=== PATIENT | female | born 1975 | race Caucasian/White ===

== ENCOUNTER 2018-07-11 12:26 | Emergency (ER) | payer OTHER ==
[~2018-07-11] VITALS: Ht 162.6 cm; Wt 94.8 kg
[~2018-07-11 12:26] MED LIST: ABAC300; ACEBUTCAFT; BUTASPCAFT PO; IBUP800 PO; KETO10 PO; Naprosyn500 MG PO; Robaxin500 MG PO; Zofran Odt4 MG SL
[2018-07-11 13:20] LABS: BASOPHILS ABSOLUTE AUTO 0.08 K/mm3 (0.00-0.23); BASOPHILS PERCENT AUTO 1 % (0-2); EOSINOPHILS ABSOLUTE AUTO 0.34 K/mm3 (0.00-0.68); EOSINOPHILS PERCENT AUTO 5 % (0-6); Hematocrit 42.9 % (33.0-51.0); Hemoglobin 14.2 g/dL (11.5-16.0); IMMATURE GRAN ABSOLUTE AUTO 0.01 K/mm3 (0.00-0.10); IMMATURE GRAN PERCENT AUTO 0 % (0-1); LYMPHOCYTES PERCENT AUTO 35 % (21-46); MONOCYTES ABSOLUTE AUTO 0.73 K/mm3 (0.16-1.47); MONOCYTES PERCENT AUTO 10 % (4-13); Mean Corpuscular HGB 31.3 pg (26.0-34.0); Mean Corpuscular HGB Conc 33.1 g/dL (31.5-36.5); Mean Corpuscular Volume 95 fL (80-100); Mean Platelet Volume 11.1 fL (9.1-12.4); NEUTROPHILS ABSOLUTE AUTO 3.48 K/mm3 (1.96-9.15); NEUTROPHILS PERCENT AUTO 49 % (41-73); Platelet Count 210 K/mm3 (150-400); RDW Coefficient Variation 11.6 % (11.7-14.2); RDW Standard Deviation 40.2 fL (35.1-46.3); Red Blood Cell Count 4.54 M/mm3 (3.80-5.20); White Blood Cell Count 7.14 K/mm3 (4.00-11.30)
[2018-07-11 13:43] LABS: Alanine Aminotransfer (ALT/SGP 22 U/L (12-78); Albumin, Blood 3.6 g/dL (3.4-5.0); Albumin/Globulin Ratio 0.9 (0.8-1.8); Alk Phos 62 U/L (50-136); Anion Gap 8 mmol/L (6-16); Aspartate Aminotrans (AST/SGOT 13 U/L (12-37); Bilirubin, Total 0.4 mg/dL (0.1-1.0); Blood Urea Nitrogen 10 mg/dL (8-24); Bun/Creatinine Ratio 14.1 (12.0-20.0); CO2, Blood 25 mmol/L (21-32); Calcium, Blood 8.6 mg/dL (8.5-10.1); Chloride, Blood 108 mmol/L (98-108); Creatinine, Blood 0.71 mg/dL (0.40-1.00); Glomerular Filtration Rate >60 (60-); Glucose, Blood 87 mg/dL (70-99); Potassium, Blood 3.7 mmol/L (3.5-5.5); Sodium, Blood 141 mmol/L (136-145); Total Protein, Blood 7.6 g/dL (6.4-8.2)
[2018-07-11] MEDS ORDERED: KETO10 PO (15:54)
[2018-07-11] MEDS ORDERED: CIPR500 PO (15:54)
== END 2018-07-11 16:10 | disposition home or self-care (01) ==
LOC: ER 12:26
PROVIDERS: Emergency Medicine
DX: A09 Infectious gastroenteritis and colitis, unspecified (principal); G43.909 Migraine, unspecified, not intractable, without status migrainosus; F17.210 Nicotine dependence, cigarettes, uncomplicated
CPT/HCPCS: 36415; 74177; 80053; 83690; 85025; 99284-25; Q9967

== ENCOUNTER → 2019-01-14 | Outpatient (CLI) | payer OTHER ==
[~2019-01-14] MED LIST changes: +CIPR500 PO
== END | disposition home or self-care (01) ==
LOC: PLD 10:38 → LAB SHORT 10:38
DX: B35.1 Tinea unguium (principal)
CPT/HCPCS: 88305; 88312

== ENCOUNTER → 2020-11-05 | Outpatient (CLI) | payer OTHER ==
[2020-11-05 08:55] LABS: BASOPHILS ABSOLUTE AUTO 0.12 K/mm3 (0.00-0.23); BASOPHILS PERCENT AUTO 2 % (0-2); EOSINOPHILS ABSOLUTE AUTO 0.26 K/mm3 (0.00-0.68); EOSINOPHILS PERCENT AUTO 3 % (0-6); Hematocrit 42.6 % (33.0-51.0); IMMATURE GRAN ABSOLUTE AUTO 0.02 K/mm3 (0.00-0.10); IMMATURE GRAN PERCENT AUTO 0 % (0-1); LYMPHOCYTES ABSOLUTE AUTO 2.52 K/mm3 (0.84-5.20); LYMPHOCYTES PERCENT AUTO 32 % (21-46); MONOCYTES ABSOLUTE AUTO 0.77 K/mm3 (0.16-1.47); MONOCYTES PERCENT AUTO 10 % (4-13); Mean Corpuscular HGB Conc 35.2 g/dL (31.5-36.5); Mean Corpuscular Volume 91 fL (80-100); Mean Platelet Volume 11.7 fL (9.1-12.4); NEUTROPHILS ABSOLUTE AUTO 4.12 K/mm3 (1.96-9.15); NEUTROPHILS PERCENT AUTO 53 % (41-73); Platelet Count 183 K/mm3 (150-400); RDW Coefficient Variation 11.8 % (11.7-14.2); RDW Standard Deviation 39.1 fL (35.1-46.3); Red Blood Cell Count 4.69 M/mm3 (3.80-5.20); White Blood Cell Count 7.81 K/mm3 (4.00-11.30)
[2020-11-05 09:09] LABS: Alanine Aminotransfer (ALT/SGP 19 U/L (12-78); Albumin, Blood 3.6 g/dL (3.4-5.0); Albumin/Globulin Ratio 0.9 (0.8-1.8); Alk Phos 58 U/L (40-126); Anion Gap 9 mmol/L (6-16); Aspartate Aminotrans (AST/SGOT 29 U/L (12-37); Bilirubin, Total 0.3 mg/dL (0.1-1.0); Blood Urea Nitrogen 11 mg/dL (8-24); Bun/Creatinine Ratio 13.6 (12.0-20.0); CO2, Blood 23 mmol/L (21-32); Calcium, Blood 8.6 mg/dL (8.5-10.1); Chloride, Blood 105 mmol/L (98-108); Creatinine, Blood 0.81 mg/dL (0.40-1.00); Glomerular Filtration Rate >60 (60-); Glucose, Blood 98 mg/dL (70-99); Potassium, Blood 4.3 mmol/L (3.5-5.5); Sodium, Blood 137 mmol/L (136-145); Total Protein, Blood 7.6 g/dL (6.4-8.2)
[2020-11-05 09:10] LABS: Troponin I <0.017 ng/mL (0.000-0.040)
== END | disposition home or self-care (01) ==
LOC: LAB 08:50 → LAB SHORT 08:50
PROVIDERS: Physician Assistant Medical
DX: R06.00 Dyspnea, unspecified (principal)
CPT/HCPCS: 80053; 84484; 85025; 85379

== ENCOUNTER 2023-03-23 00:28 | Observation (INO) | payer OTHER ==
[~2023-03-23] VITALS: Ht 157.5 cm; Wt 90.7 kg
[2023-03-23] MEDS ORDERED: Ventolin/Prove6.7 GM INH (00:58)
[2023-03-23 01:00] LABS: BASOPHILS PERCENT AUTO 2 % (0-2); EOSINOPHILS ABSOLUTE AUTO 1.67 K/mm3 (0.00-0.68); EOSINOPHILS PERCENT AUTO 13 % (0-6); Hematocrit 38.4 % (33.0-51.0); Hemoglobin 13.1 g/dL (11.5-16.0); IMMATURE GRAN ABSOLUTE AUTO 0.03 K/mm3 (0.00-0.10); IMMATURE GRAN PERCENT AUTO 0 % (0-1); LYMPHOCYTES ABSOLUTE AUTO 3.53 K/mm3 (0.84-5.20); LYMPHOCYTES PERCENT AUTO 28 % (21-46); MONOCYTES ABSOLUTE AUTO 1.32 K/mm3 (0.16-1.47); MONOCYTES PERCENT AUTO 10 % (4-13); Mean Corpuscular HGB 31.1 pg (26.0-34.0); Mean Corpuscular HGB Conc 34.1 g/dL (31.5-36.5); Mean Corpuscular Volume 91 fL (80-100); Mean Platelet Volume 11.1 fL (9.1-12.4); NEUTROPHILS ABSOLUTE AUTO 6.07 K/mm3 (1.96-9.15); NEUTROPHILS PERCENT AUTO 47 % (41-73); Platelet Count 237 K/mm3 (150-400); RDW Coefficient Variation 12.4 % (11.7-14.2); RDW Standard Deviation 41.1 fL (35.1-46.3); Red Blood Cell Count 4.21 M/mm3 (3.80-5.20); White Blood Cell Count 12.82 K/mm3 (4.00-11.30)
[2023-03-23] MEDS ORDERED: RYBELSUS3 MG PO (01:00)
[2023-03-23 01:13] LABS: Albumin, Blood 3.2 g/dL (3.4-5.0); Albumin/Globulin Ratio 0.8 (0.8-1.8); Bilirubin, Total 0.3 mg/dL (0.1-1.0); Bun/Creatinine Ratio 22.3 (12.0-20.0); Calcium, Blood 8.2 mg/dL (8.5-10.1); Creatinine, Blood 0.58 mg/dL (0.40-1.00); Globulin, Blood 3.9 g/dL (2.2-4.0); Potassium, Blood 3.8 mmol/L (3.5-5.5); Total Protein, Blood 7.1 g/dL (6.4-8.2)
[2023-03-23 05:02] LABS: Base Excess Venous -1.5 mmol/L; Bicarbonate Venous 23.5 mmol/L (24.0-30.0); PCO2 Venous 37.2 mmHg (38-42); pH Blood Venous 7.41 (7.34-7.37)
[2023-03-23 05:28] LABS: BASOPHILS PERCENT AUTO 1 % (0-2); EOSINOPHILS ABSOLUTE AUTO 0.05 K/mm3 (0.00-0.68); EOSINOPHILS PERCENT AUTO 1 % (0-6); Hematocrit 38.6 % (33.0-51.0); Hemoglobin 13.2 g/dL (11.5-16.0); IMMATURE GRAN ABSOLUTE AUTO 0.04 K/mm3 (0.00-0.10); IMMATURE GRAN PERCENT AUTO 0 % (0-1); LYMPHOCYTES ABSOLUTE AUTO 0.78 K/mm3 (0.84-5.20); LYMPHOCYTES PERCENT AUTO 7 % (21-46); MONOCYTES ABSOLUTE AUTO 0.24 K/mm3 (0.16-1.47); MONOCYTES PERCENT AUTO 2 % (4-13); Mean Corpuscular HGB 31.2 pg (26.0-34.0); Mean Corpuscular HGB Conc 34.2 g/dL (31.5-36.5); Mean Corpuscular Volume 91 fL (80-100); Mean Platelet Volume 11.3 fL (9.1-12.4); NEUTROPHILS ABSOLUTE AUTO 9.29 K/mm3 (1.96-9.15); NEUTROPHILS PERCENT AUTO 88 % (41-73); Platelet Count 230 K/mm3 (150-400); RDW Coefficient Variation 12.4 % (11.7-14.2); RDW Standard Deviation 41.1 fL (35.1-46.3); Red Blood Cell Count 4.23 M/mm3 (3.80-5.20)
[2023-03-23 05:49] VITALS: BP 154/71
[2023-03-23 05:52] LABS: Albumin, Blood 3.3 g/dL (3.4-5.0); Albumin/Globulin Ratio 0.8 (0.8-1.8); Bilirubin, Total 0.3 mg/dL (0.1-1.0); Bun/Creatinine Ratio 17.8 (12.0-20.0); Calcium, Blood 8.6 mg/dL (8.5-10.1); Creatinine, Blood 0.62 mg/dL (0.40-1.00); Globulin, Blood 3.9 g/dL (2.2-4.0); Magnesium, Blood 2.8 mg/dL (1.6-2.4); Potassium, Blood 3.5 mmol/L (3.5-5.5); Total Protein, Blood 7.2 g/dL (6.4-8.2)
--- NOTE | 2023-03-23 06:00 | NUR ---
ADMIT- SHIFT SUMMARY NOTE PATIENT IS ADMITTED FROM ED. PATIENT IS AOX4. PATIENT IS IND. ADMISSION COMPLETE. PATIENT HAS NO VAPING MATERIALS. WILL REPORT TO DAY SHIFT.
[2023-03-23 07:31] VITALS: BP 140/72
[2023-03-23] MEDS ORDERED: Amoxicillin500 MG PO (15:11)
[2023-03-23 15:57] VITALS: BP 126/73
--- NOTE | 2023-03-23 16:43 | NUR ---
PT AOX4 AND COOPERATIVE OF CARE. PT STATING SHE FEELS BETTER FAR HER BREATHING. PT STILL SOB, BUT APPEARS TO NOT BE LABORED WHEN TAKING BREATHS. PT REPORTED HEADACE TODAY AND WAS TREATED WITH TYLENOL WHICH WAS NOT EFFECTIVE. PT REPORTED HER CHERY CONTINUING AND DR RAY WAS NOTFIED AND ADDED MEDICATION TO EMAR. PT WAS TREATED AGAIN AND NOW SHE STATES IT IS TOLERABLE. INDEPENDENT IN ROOM AND ABLE TO MAKE NEEDS KNOWN. WILL CONTINUE TO MONITOR.
[2023-03-23 19:08] VITALS: BP 141/80
[2023-03-24 02:44] VITALS: BP 125/82
--- NOTE | 2023-03-24 04:25 | NUR ---
SHIFT SUMMARY THUY IS ALERT AND FULLY ORIENTED AT THE START OF SHIFT AND COOPERATIVE WITH CARE. AT TIME OF ASSESSMENT PT IS DENYING PAIN, C/P/PRESSURE, AND SOB. PT IS INDEPENDENT IN ROOM. NO ACUTE EVENTS TONIGHT, PT RESTING IN BED AT A LOW POSITION WITH THE CALL LIGHT IN REACH WHICH SHE USES APPROPRIATELY.
[2023-03-24 06:07] LABS: BASOPHILS ABSOLUTE AUTO 0.05 K/mm3 (0.00-0.23); BASOPHILS PERCENT AUTO 0 % (0-2); EOSINOPHILS ABSOLUTE AUTO 0.02 K/mm3 (0.00-0.68); EOSINOPHILS PERCENT AUTO 0 % (0-6); Hematocrit 38.4 % (33.0-51.0); IMMATURE GRAN PERCENT AUTO 1 % (0-1); LYMPHOCYTES ABSOLUTE AUTO 2.75 K/mm3 (0.84-5.20); LYMPHOCYTES PERCENT AUTO 14 % (21-46); MONOCYTES ABSOLUTE AUTO 1.45 K/mm3 (0.16-1.47); MONOCYTES PERCENT AUTO 8 % (4-13); Mean Corpuscular HGB 31.2 pg (26.0-34.0); Mean Corpuscular HGB Conc 33.9 g/dL (31.5-36.5); Mean Corpuscular Volume 92 fL (80-100); NEUTROPHILS ABSOLUTE AUTO 15.01 K/mm3 (1.96-9.15); NEUTROPHILS PERCENT AUTO 77 % (41-73); Platelet Count 256 K/mm3 (150-400); RDW Standard Deviation 44.4 fL (35.1-46.3); Red Blood Cell Count 4.17 M/mm3 (3.80-5.20); White Blood Cell Count 19.38 K/mm3 (4.00-11.30)
[2023-03-24 06:38] LABS: Bun/Creatinine Ratio 22.9 (12.0-20.0); Calcium, Blood 8.3 mg/dL (8.5-10.1); Creatinine, Blood 0.65 mg/dL (0.40-1.00); Potassium, Blood 4.4 mmol/L (3.5-5.5)
[2023-03-24 07:34] VITALS: BP 138/88
[2023-03-24 10:12] LABS: Adenovirus Not Detected (NOT DETECT); Bordetella pertussis Not Detected (NOT DETECT); Chlamydophila pneumoniae Not Detected (NOT DETECT); Coronavirus 229E Not Detected (NOT DETECT); Coronavirus HKU1 Not Detected (NOT DETECT); Coronavirus NL63 Not Detected (NOT DETECT); Coronavirus OC43 Not Detected (NOT DETECT); Human Metapneumovirus Not Detected (NOT DETECT); Human Rhinovirus/Enterovirus Not Detected (NOT DETECT); Influenza A/2009-H1 Not Detected (NOT DETECT); Influenza A/H1 Not Detected (NOT DETECT); Influenza A/H3 Not Detected (NOT DETECT); Influenza B Not Detected (NOT DETECT); Mycoplasma pneumoniae Not Detected (NOT DETECT); Parainfluenza Virus 1 Not Detected (NOT DETECT); Parainfluenza Virus 2 Not Detected (NOT DETECT); Parainfluenza Virus 3 Not Detected (NOT DETECT); Parainfluenza Virus 4 Not Detected (NOT DETECT); Respiratory Syncytial Virus Not Detected (NOT DETECT); SARS-Cov-2 (COVID-19), BioFire Not Detected (NOT DETECT)
[2023-03-24] MEDS ORDERED: ALBU2.5V5 INH (12:18)
[2023-03-24] MEDS ORDERED: VISBIOME 112.51 EACH PO (12:19)
[2023-03-24] MEDS ORDERED: IPRAT-ALBUT 0.5-3 ML INH (12:19)
[2023-03-24] MEDS ORDERED: PRED20 PO (12:19)
[2023-03-24] MEDS ORDERED: AZIT250 PO (12:20)
[2023-03-24] MEDS ORDERED: FLUT1DIS5 INH (12:20)
[2023-03-24] MEDS ORDERED: GUAI600T33 PO (12:21)
--- NOTE | 2023-03-24 13:20 | NUR ---
PATIENT D/C'D TO HOME WITH FAMILY. D/C INSTRUCTIONS AND EDUCATION DISCUSSED WITH PATIENT AND COPY PROVIDED. RX MEDICATIONS FAXED TO [facility] [employer]. PATIENT DENIES ANY FURTHER QUESTIONS OR CONCERNS. METAL CUT OFF SAW TENDER TO CONTACT WITH INFORMATION ABOUT NEBULIZER.
== END 2023-03-24 13:11 | disposition home or self-care (01) ==
LOC: ER 00:28 → MEDS 05:05 → ENPENDDIS 03-24 11:56 → MEDS 03-24 13:11
PROVIDERS: Family Medicine; Internal Medicine; Student in an Organized Health Care Education/Training Program; ADMIT Student in an Organized Health Care Education/Training Program
DX: J44.1 Chronic obstructive pulmonary disease with (acute) exacerbation (principal); Z72.0 Tobacco use; Z20.822 Contact with and (suspected) exposure to COVID-19
CPT/HCPCS: 0202U; 36415; 71046; 80048; 80053; 82803; 83735; 83880; 85025; 93005; 93010; 94640; 94645; 94664; 94760; 94761; 94762; 96365; 96372; 96375; 99285-25; A9270; G0378; J1650; J2930; J3475; J7512; J7626

== ENCOUNTER 2024-08-27 20:58 | Inpatient (IN) | payer OTHER ==
[~2024-08-27] VITALS: Ht 162.6 cm; Wt 91.8 kg
[~2024-08-27 20:58] MED LIST changes: +ALBU2.5V5 INH; +AZIT250 PO; +Amoxicillin500 MG PO; +FLUT1DIS5 INH; +GUAI600T33 PO; +IPRAT-ALBUT 0.5-3 ML INH; +PRED20 PO; +RYBELSUS3 MG PO; +VISBIOME 112.51 EACH PO; +Ventolin/Prove6.7 GM INH
[2024-08-27] MEDS ORDERED: Mag Sulfate 1 GM/D5% 100ML 100 ML IV STA (21:03)
[2024-08-27 21:10] LABS: Base Excess Venous -2.2 mmol/L; Bicarbonate Venous 23.1 mmol/L (24.0-30.0); PCO2 Venous 34.9 mmHg (38-42); pH Blood Venous 7.42 (7.34-7.37)
[2024-08-27] MEDS ORDERED: Albuterol 2.5 MG/3 ML VIAL INH SCH ×2 (21:10→23:35)
[2024-08-27 21:22] LABS: BASOPHILS ABSOLUTE AUTO 0.23 K/mm3 (0.00-0.23); BASOPHILS PERCENT AUTO 1 % (0-2); EOSINOPHILS ABSOLUTE AUTO 0.91 K/mm3 (0.00-0.68); EOSINOPHILS PERCENT AUTO 5 % (0-6); Hematocrit 41.7 % (33.0-51.0); Hemoglobin 14.6 g/dL (11.5-16.0); IMMATURE GRAN ABSOLUTE AUTO 0.05 K/mm3 (0.00-0.10); IMMATURE GRAN PERCENT AUTO 0 % (0-1); LYMPHOCYTES ABSOLUTE AUTO 2.69 K/mm3 (0.84-5.20); LYMPHOCYTES PERCENT AUTO 15 % (21-46); MONOCYTES ABSOLUTE AUTO 1.08 K/mm3 (0.16-1.47); MONOCYTES PERCENT AUTO 6 % (4-13); Mean Corpuscular HGB 30.9 pg (26.0-34.0); Mean Corpuscular Volume 88 fL (80-100); Mean Platelet Volume 10.5 fL (9.1-12.4); NEUTROPHILS ABSOLUTE AUTO 12.53 K/mm3 (1.96-9.15); NEUTROPHILS PERCENT AUTO 72 % (41-73); Platelet Count 292 K/mm3 (150-400); RDW Coefficient Variation 12.2 % (11.7-14.2); RDW Standard Deviation 39.2 fL (35.1-46.3); Red Blood Cell Count 4.73 M/mm3 (3.80-5.20); White Blood Cell Count 17.49 K/mm3 (4.00-11.30)
[2024-08-27 21:56] LABS: Albumin, Blood 3.6 g/dL (3.4-5.0); Albumin/Globulin Ratio 0.9 (0.8-1.8); Bilirubin, Total 0.2 mg/dL (0.1-1.0); Bun/Creatinine Ratio 18.7 (12.0-20.0); Creatinine, Blood 0.69 mg/dL (0.40-1.00); Globulin, Blood 3.9 g/dL (2.2-4.0); Potassium, Blood 3.7 mmol/L (3.5-5.5); Total Protein, Blood 7.5 g/dL (6.4-8.2)
[2024-08-27] MEDS ORDERED: Azithromycin 500 MG in NS 250 ML IV ONE (23:30)
[2024-08-27] MEDS ORDERED: Ipratropium Bromide INH 0.02% 0.5 mg/2.5ML Vial INH SCH (23:35)
[2024-08-28 02:24] VITALS: BP 120/63
[2024-08-28] MEDS ORDERED: RYBELSUS3 MG PO (02:25)
[2024-08-28] MEDS ORDERED: Ipratropium/Albuterol SulF 2.5-0.5MG/3 ML Amp INH PRN (02:55)
[2024-08-28] MEDS ORDERED: Guaifenesin/Dextromethorphan Syrup 5 ML UDC PO PRN (02:55)
[2024-08-28] MEDS ORDERED: Ondansetron HCl 2 MG / ML 2ML Vial IV PRN (02:55)
[2024-08-28 03:18] LABS: BASOPHILS ABSOLUTE AUTO 0.04 K/mm3 (0.00-0.23); BASOPHILS PERCENT AUTO 0 % (0-2); EOSINOPHILS ABSOLUTE AUTO 0.01 K/mm3 (0.00-0.68); EOSINOPHILS PERCENT AUTO 0 % (0-6); Hemoglobin 13.8 g/dL (11.5-16.0); IMMATURE GRAN ABSOLUTE AUTO 0.02 K/mm3 (0.00-0.10); IMMATURE GRAN PERCENT AUTO 0 % (0-1); LYMPHOCYTES ABSOLUTE AUTO 0.53 K/mm3 (0.84-5.20); LYMPHOCYTES PERCENT AUTO 5 % (21-46); MONOCYTES ABSOLUTE AUTO 0.13 K/mm3 (0.16-1.47); MONOCYTES PERCENT AUTO 1 % (4-13); Mean Corpuscular HGB 30.7 pg (26.0-34.0); Mean Corpuscular HGB Conc 34.5 g/dL (31.5-36.5); Mean Corpuscular Volume 89 fL (80-100); Mean Platelet Volume 10.5 fL (9.1-12.4); NEUTROPHILS ABSOLUTE AUTO 10.43 K/mm3 (1.96-9.15); NEUTROPHILS PERCENT AUTO 93 % (41-73); Platelet Count 270 K/mm3 (150-400); RDW Coefficient Variation 12.4 % (11.7-14.2); RDW Standard Deviation 40.1 fL (35.1-46.3); Red Blood Cell Count 4.49 M/mm3 (3.80-5.20); White Blood Cell Count 11.16 K/mm3 (4.00-11.30)
[2024-08-28] MEDS ORDERED: Ipratropium/Albuterol SulF 2.5-0.5MG/3 ML Amp INH SCH (03:30)
[2024-08-28] MEDS ORDERED: Albuterol 2.5 MG/3 ML VIAL INH PRN (03:30)
[2024-08-28 03:36] LABS: Albumin, Blood 3.4 g/dL (3.4-5.0); Albumin/Globulin Ratio 0.8 (0.8-1.8); Bilirubin, Total 0.1 mg/dL (0.1-1.0); Bun/Creatinine Ratio 19.3 (12.0-20.0); Calcium, Blood 8.6 mg/dL (8.5-10.1); Creatinine, Blood 0.73 mg/dL (0.40-1.00); Potassium, Blood 3.3 mmol/L (3.5-5.5); Total Protein, Blood 7.4 g/dL (6.4-8.2)
[2024-08-28] MEDS ORDERED: NS 250 ML IV PRN (04:00)
[2024-08-28] MEDS ORDERED: Potassium Chloride 20 MEQ TabCR PO ONE ×2 (05:00→08:00)
[2024-08-28] MEDS ORDERED: MethylPREDNISolone Sod Succ 125 MG Vial IV SCH (05:00)
[2024-08-28 05:13] LABS: Influenza A, PCR NEGATIVE (NEGATIVE); Influenza B, PCR NEGATIVE (NEGATIVE); Resp Syncytial Virus, PCR NEGATIVE (NEGATIVE); SARS-Cov-2 (COVID-19) PCR, MMC NEGATIVE (NEGATIVE)
[2024-08-28 07:36] VITALS: BP 178/87
[2024-08-28] MEDS ORDERED: Mometasone/Formoterol MDI 200/5 mcg 13 GM INH SCH (07:50)
[2024-08-28] MEDS ORDERED: Enoxaparin 40 MG/0.4 ML SYR SC SCH (09:00)
[2024-08-28] MEDS ORDERED: Lactobacil 2-S.Thermo-Bifido 1 1 Cap PO SCH (09:00)
[2024-08-28 09:09] VITALS: BP 137/65
[2024-08-28 12:00] VITALS: BP 137/71
[2024-08-28 15:40] VITALS: BP 105/54
--- NOTE | 2024-08-28 15:58 | NUR ---
NO ACUTE CHANGES THIS SHIFT. PT REPORTED FEELING BETTER LAST NIGHT BUT FEELING WORSE THIS MORNING. CALLS APPROPRIATELY, SCHEDULED BREATHING TREATMENTS. INDEPENDENT IN THE ROOM. PT FEELING TIGHTNESS IN CHEST.
[2024-08-28 19:53] VITALS: BP 129/72
[2024-08-28] MEDS ORDERED: Azithromycin 500 MG in NS 250 ML IV SCH (21:00)
[2024-08-29 00:07] VITALS: BP 124/69
[2024-08-29 04:52] VITALS: BP 115/66
--- NOTE | 2024-08-29 05:19 | NUR ---
OPTOMETRIC ASSISTANT SUMMARY: PT A&O X4. MAKES NEEDS KNOWN TO STAFF. NO ACUTE CHANGES T/O SHIFT. PT INDEPENDENT WITH CARES IN ROOM. NO ADVERSE SIDE EFFECTS NOTED TO IV ABX. CALL LIGHT IN REACH. BED IN LOWEST POSITION. CARES CONTINUE ORDERED.
[2024-08-29] MEDS ORDERED: Potassium Chloride 20 MEQ TabCR PO ONE (07:00)
[2024-08-29 07:08] LABS: BASOPHILS ABSOLUTE AUTO 0.05 K/mm3 (0.00-0.23); BASOPHILS PERCENT AUTO 0 % (0-2); EOSINOPHILS ABSOLUTE AUTO 0.01 K/mm3 (0.00-0.68); EOSINOPHILS PERCENT AUTO 0 % (0-6); Hematocrit 41.2 % (33.0-51.0); Hemoglobin 14.1 g/dL (11.5-16.0); IMMATURE GRAN ABSOLUTE AUTO 0.24 K/mm3 (0.00-0.10); IMMATURE GRAN PERCENT AUTO 1 % (0-1); LYMPHOCYTES ABSOLUTE AUTO 1.56 K/mm3 (0.84-5.20); LYMPHOCYTES PERCENT AUTO 5 % (21-46); MONOCYTES ABSOLUTE AUTO 1.34 K/mm3 (0.16-1.47); MONOCYTES PERCENT AUTO 4 % (4-13); Mean Corpuscular HGB Conc 34.2 g/dL (31.5-36.5); Mean Corpuscular Volume 91 fL (80-100); Mean Platelet Volume 10.9 fL (9.1-12.4); NEUTROPHILS ABSOLUTE AUTO 26.94 K/mm3 (1.96-9.15); NEUTROPHILS PERCENT AUTO 89 % (41-73); Platelet Count 284 K/mm3 (150-400); RDW Coefficient Variation 13.1 % (11.7-14.2); RDW Standard Deviation 43.6 fL (35.1-46.3); Red Blood Cell Count 4.55 M/mm3 (3.80-5.20); White Blood Cell Count 30.14 K/mm3 (4.00-11.30)
[2024-08-29 07:33] LABS: Bun/Creatinine Ratio 23.1 (12.0-20.0); Calcium, Blood 8.8 mg/dL (8.5-10.1); Creatinine, Blood 0.74 mg/dL (0.40-1.00); Potassium, Blood 4.8 mmol/L (3.5-5.5)
[2024-08-29 07:34] VITALS: BP 117/69
[2024-08-29] MEDS ORDERED: PredniSONE 20 MG Tab PO SCH (09:00)
--- NOTE | 2024-08-29 09:06 | NUR ---
Pt laying in bed awake a/ox4, pleasant and cooperative with care, follows commands well, states she's feeling a lot better, lungs have air movement, wheezing, on r/a, has a harsh cough but unable to bring up at this time, hrr, piv to lac site is clear and patent, ppp+2, cap refill< 3 sec, vs stable, afebrile, piv to lac site is clear and patent, btx4, abd flat soft nontender, voids without diff, skin c/w/d, rob varela, call light in reach, in room, plan for discharge today.
[2024-08-29] MEDS ORDERED: AZIT500 PO (11:54)
[2024-08-29] MEDS ORDERED: BREZTRI AEROS10.7 GM INH (11:55)
[2024-08-29] MEDS ORDERED: PRED20 PO (11:56)
== END 2024-08-29 15:02 | disposition home or self-care (01) | DRG 189 ==
LOC: ER 20:58 → MEDS 20:59 → ERHOLD 20:59 → MEDS 08-28 02:21
PROVIDERS: Student in an Organized Health Care Education/Training Program; ADMIT Internal Medicine
DX: J96.01 Acute respiratory failure with hypoxia (principal); J44.1 Chronic obstructive pulmonary disease with (acute) exacerbation; E87.3 Alkalosis; E87.6 Hypokalemia; F17.290 Nicotine dependence, other tobacco product, uncomplicated; M54.9 Dorsalgia, unspecified; G89.29 Other chronic pain; R01.1 Cardiac murmur, unspecified; D72.829 Elevated white blood cell count, unspecified; Z91.048 Other nonmedicinal substance allergy status; Z98.890 Other specified postprocedural states; Z88.8 Allergy status to other drugs, medicaments and biological substances; Z98.51 Tubal ligation status
CPT/HCPCS: 0241U; 36415; 71045; 80048; 80053; 82803; 83880; 85025; 93005; 93010; 94640; 94644; 94645; 94664; 94760; 96365; 96366; 96367; 96372; 96375; 99285-25; A9270; G0378; J0456; J1650; J2919; J3475; J7050; J7512